=== PATIENT | male | born 1970 | race Caucasian/White ===

== ENCOUNTER 2020-04-27 12:00 | Outpatient (CLI) | payer BC, SELFPAY | END 2020-04-27 12:01 | disposition home or self-care (01) | LOC: SLEEP 04-28 09:52 | PROVIDERS: Family Provider Family Medicine; PCP Family Medicine; Visit Provider Family Medicine | DX: G47.10 Hypersomnia, unspecified (principal) | CPT/HCPCS: G0399 ==

== ENCOUNTER 2020-06-10 20:00 | Outpatient (CLI) | payer BC, SELFPAY | END 2020-06-10 20:01 | disposition home or self-care (01) | LOC: SLEEP 06-11 08:52 | PROVIDERS: Family Provider Family Medicine; PCP Family Medicine; Visit Provider Family Medicine | DX: G47.30 Sleep apnea, unspecified (principal) | CPT/HCPCS: 95811 ==

== ENCOUNTER 2021-02-16 11:29 | Outpatient (CLI) | payer BC, SELFPAY ==
--- NOTE | 2021-02-16 11:41 | XRR_ITS ---
PROCEDURE INFORMATION: Exam: XR Lumbosacral Spine Exam date and time: 02/16/2021 11:56 AM Age: 50 years old Clinical indication: Low back pain TECHNIQUE: Imaging protocol: XR of the lumbosacral spine. Views: 6 or more views. Including flexion and extension views. COMPARISON: MRI Lumbar Spine w/o [id number] 09/19/2014 2:47 PM FINDINGS: Bones/joints: No fracture, dislocation or other acute bony abnormalities are seen. Mild degenerative changes are present with mild disc space narrowing along with degenerative narrowing and sclerosis of the lumbar facet joints. There is no significant malalignment on the flexion and extension views. Soft tissues: Unremarkable. XR/XR lumbar spine 6V w f/e [id number] IMPRESSION: 1. No acute abnormality. No malalignment. 2. Mild chronic degenerative disease.
== END 2021-02-16 11:30 | disposition home or self-care (01) ==
PROVIDERS: PCP Nurse Practitioner Family; Visit Provider Nurse Practitioner Family
DX: S39.92XA Unspecified injury of lower back, initial encounter (principal); M54.5 Low back pain; X58.XXXA Exposure to other specified factors, initial encounter
CPT/HCPCS: 72114

== ENCOUNTER → 2021-03-21 12:27 | Outpatient (BNVA) | payer BC, SELFPAY | PROVIDERS: PCP Nurse Practitioner Family; Visit Provider Nurse Practitioner | DX: R10.9 Unspecified abdominal pain (principal) | CPT/HCPCS: 81000 ==

== ENCOUNTER 2021-12-29 14:36 | Outpatient (CLI) | payer OTHER, SELFPAY ==
--- NOTE | 2021-12-29 15:15 | MR_ITS ---
WS: [id number] MRI LEFT SHOULDER HISTORY: Throwing injury. Pain. COMPARISON: 11/08/2021 TECHNIQUE: Multiplanar sequences of the shoulder joint are submitted. Moderate AC joint osteoarthritis. Joint space narrowing with hypertrophic osteophyte formation and ma rrow edema on both sides of the joint. Osteophyte encroachment upon the supraspinatus muscle at the l evel of the glenoid. Additional osteophyte from the distal undersurface of the acromion with mild enc roachment upon the supraspinatus tendon. No os acromion. Biceps tendon remains in the bicipital groov e. There is increase fluid along the biceps tendon sheath. 5 mm insertion site tear of the distal supraspinatus with fluid signal extending into the tendon. The re is no tendon retraction. There is additional mild tendinopathy involving the supraspinatus tendon. Suspect also a small insertion site tear involving the infraspinatus tendon. No retraction. Subscapu gerson tendon is normal. No muscle atrophy or edema. Glenohumeral joint narrowing. No labral tear is i dentified. Evaluation of the labrum is limited secondary to motion and positioning of the patient. No marrow edema or fracture. There is a small amount of edema along the coracohumeral ligament to the r otator cuff interval. MR/MR shoulder LT wo con* [id number] IMPRESSION: 1. Moderate AC joint arthritis with encroachment upon the supraspinatus tendon and muscle. 2. Additional subacromial impingement upon the supraspinatus tendon over the h umeral head by the distal undersurface acromial osteophyte. 3. Insertion site tear with intrasubstance extension supraspinatus tendon with no retraction. 4. Suspicious for tiny insertion site tear of the infraspinatus tendon. 5. Increase fluid in the biceps tendon sheath consistent with tenosynovitis. 6. Small amount of edema in the rotator cuff interval and coracohumeral ligame nt from mild sprain.
== END 2021-12-29 14:37 | disposition home or self-care (01) ==
LOC: RAD 14:37
PROVIDERS: PCP Nurse Practitioner Family; Visit Provider Orthopaedic Surgery
DX: S46.912A Strain of unspecified muscle, fascia and tendon at shoulder and upper arm level, left arm, initial encounter (principal); X58.XXXA Exposure to other specified factors, initial encounter; M13.812 Other specified arthritis, left shoulder; R60.0 Localized edema
CPT/HCPCS: 73221

== ENCOUNTER 2022-01-14 06:00 | Outpatient (RCR) | payer OTHER, SELFPAY | END 2022-01-27 23:59 | disposition home or self-care (01) | LOC: SPT 06:00 | PROVIDERS: PCP Nurse Practitioner Family; Referring Provider Orthopaedic Surgery; Visit Provider Orthopaedic Surgery | DX: M25.512 Pain in left shoulder (principal) | CPT/HCPCS: 97110; 97161 ==

== ENCOUNTER 2022-01-28 06:00 | Outpatient (RCR) | payer OTHER, SELFPAY | END 2022-02-24 17:15 | disposition home or self-care (01) | LOC: SPT 06:00 | PROVIDERS: PCP Nurse Practitioner Family; Referring Provider Orthopaedic Surgery; Visit Provider Orthopaedic Surgery | DX: M25.512 Pain in left shoulder (principal) | CPT/HCPCS: 97110 ==

== ENCOUNTER 2022-09-27 04:51 | Emergency (ER) | payer BC, SELFPAY ==
[2022-09-27 04:59] VITALS: BP 152/103; PULSE 56; RESP 18; TEMP 36.5; O2SAT 98; BMI 38.0
--- NOTE | 2022-09-27 05:04 | W.ED.ABDPA2 ---
HPI - Abdominal Pain General: Chief Complaint: Abdominal Pain Stated Complaint: abd pain Time Seen by Provider: 09/27/22 04:53 Source: patient Mode of arrival: ambulatory Limitations: no limitations History of Present Illness: 51-year-old male states been having left lower quadrant abdominal pain over the last 2 days. He states been sharp in nature has been having diarrhea over the last 4 days. He states his pain is currently a 5 out of 10 he denies any fevers he states he has had diverticulitis in the past and this feels similar. He denies any fevers Associated Symptoms: Denies chills, dysuria and fever(s) Review of Systems Const: Denies: fever(s), chills, body aches or change in appetite Eyes: Denies: blurry vision or eye discomfort ENMT: Denies: throat pain or dental pain Card: Denies: chest pain Resp: Denies: dyspnea GI: Reports: abdominal pain : Denies: dysuria Musc: Denies: neck pain or back pain Skin/Breast: Denies: rash Neuro: Denies: headache(s) Psych: Denies: depression Rob/Lymph: Denies: easy bruising All/Imm: Denies: urticaria PFSH ED PFSH: Medical History Diverticulitis Social History Smoking and tobacco status: never smoked (but chews tabaco ) Alcohol intake: current Alcohol intake frequency: holidays/special occasions only Physical Exam Const: COMMON NORMALS: no acute distress, patient oriented x3 and healthy appearing HENMT: COMMON NORMALS: normocephalic and atraumatic HEAD & SCALP: normocephalic and atraumatic Eye: COMMON NORMALS: Equal, round and reactive pupils present and EOMs intact bilaterally PUPIL: Yes Equal, round and reactive pupils present Neck/C-Spine: COMMON NORMALS: full ROM and supple Chest: COMMONS NORMALS: normal inspection of the chest and normal palpation of entire chest wall Resp: COMMON NORMALS: normal respiratory effort, No retractions, No use of accessory muscles and clear to auscultation bilaterally AUSCULTATION: clear to auscultation bilaterally Cardio: COMMON NORMALS: regular rate, regular rhythm and No murmurs present (Cardio) RATE: regular rate RHYTHM: regular rhythm GI: COMMON NORMALS: Normal to inspection, nondistended, normoactive bowel sounds present, Soft to palpation and no masses PALPATION: Yes Soft to palpation and Yes Tenderness to palpation present (GI) Details: LLQ Extremity: COMMON NORMALS: normal to inspection and full ROM Neuro: COMMON NORMALS: patient oriented x3, moves all extremities and no focal motor deficits Psych: COMMON NORMALS: mental status grossly normal, Normal thought process present and cooperative THOUGHT PROCESS: Normal thought process present Skin: COMMON NORMALS: no rashes or lesions noted and no wounds GENERAL SKIN EXAM: no rashes or lesions noted Course Vital Signs: Vital signs: Vital Signs Temperature 97.7 F 09/27/22 04:59 Pulse Rate 56 L 09/27/22 05:10 Respiratory Rate 15 09/27/22 05:12 Blood Pressure 131/88 09/27/22 05:10 Pulse Oximetry 98 09/27/22 05:12 Oxygen Delivery Me thod 09/27/22 05:10 MDM - Abdominal Pain Medical Decision Making Patient presents with abdominal pains is likely diverticulitis his white count here is normal he is nontoxic-appearing we will place him on antibiotics along with pain medicine he is to follow-up with PCP and return if worsening. Lab Data 09/27/22 05:04 09/27/22 05:04 Labs/Radiology: Laboratory Results WBC 6.9 10^3/uL (4.0-10.0) 09/27/22 05:04 RBC 5.68 10^6/uL (4.1-5.3) H 09/27/22 05:04 Hgb 17.1 g/dL (11.7-16.6) H 09/27/22 05:04 Hct 50.7 % (42.0-52.0) 09/27/22 05:04 MCV 89.3 fl (80-94) 09/27/22 05:04 MCH 30.1 pg (28.0-34.0) 09/27/22 05:04 MCHC 33.7 g/dL (30.0-36.0) 09/27/22 05:04 RDW 12.4 % (12.1-15.1) 09/27/22 05:04 Plt Count 203 10^3/cmm (130-400) 09/27/22 05:04 MPV 9.5 fL (7.4-10.4) 09/27/22 05:04 Neut % (Auto) 50.4 % 09/27/22 05:04 Lymph % (Auto) 36.1 % 09/27/22 05:04 Weld % (Auto) 11.2 % 09/27/22 05:04 Eos % (Auto) 1.6 % 09/27/22 05:04 Baso % (Auto) 0.4 % 09/27/22 05:04 Neut # (Auto) 3.45 10^3/uL (1.8-7.7) 09/27/22 05:04 Lymph # (Auto) 2.5 10^3/uL (0.8-4.8) 09/27/22 05:04 Weld # (Auto) 0.8 10^3/uL (0.2-0.9) 09/27/22 05:04 Eos # (Auto) 0.1 10^3/uL (0.0-0.8) 09/27/22 05:04 Baso # (Auto) 0.0 10^3/uL (0.0-0.1) 09/27/22 05:04 Nucleated RBC % (auto) 0 % 09/27/22 05:04 Nucleated RBCs # 0.0 /100WBC 09/27/22 05:04 Sodium 136 mmol/L (136-145) 09/27/22 05:04 Potassium 3.9 mmol/L (3.5-5.1) 09/27/22 05:04 Chloride 102 mmol/L (98-107) 09/27/22 05:04 Carbon Dioxide 25 mmol/L (22-29) 09/27/22 05:04 Anion Gap 12.9 (5-19) 09/27/22 05:04 BUN 13 mg/dL (6-20) 09/27/22 05:04 Creatinine 1.0 mg/dL (0.7-1.2) 09/27/22 05:04 GFR Calculation 78.8 mL/min (90-130) L 09/27/22 05:04 Glucose 89 mg/dL (65-115) 09/27/22 05:04 Calculated Osmolality 282 mOsm/kg (285-295) L 09/27/22 05:04 Calcium 9.1 mg/dL (8.5-10.5) 09/27/22 05:04 Total Bilirubin 0.6 mg/dL (0.15-1.2) 09/27/22 05:04 AST 17 U/L (0-40) 09/27/22 05:04 ALT 27 U/L (0-41) 09/27/22 05:04 Alkaline Phosphatase 98 U/L (40-130) 09/27/22 05:04 Total Protein 6.7 g/dL (6.6-8.7) 09/27/22 05:04 Albumin 4.1 g/dL (3.5-5.2) 09/27/22 05:04 Globulin 2.6 g/dL (1.3-4.6) 09/27/22 05:04 Lipase 27 U/L (13-60) 09/27/22 05:04 Discharge Plan Discharge Patient Disposition: Home Clinical Impression: Abdominal pain, Diverticulitis Condition: Stable Prescriptions: New hydrocodone-acetaminophen 5-325 mg tablet 1 tab PO Q6H PRN (Reason: pain) Qty: 14 0RF ondansetron 4 mg tablet,disintegrating 4 mg PO Q6H PRN (Reason: nausea and vomiting) Qty: 14 0RF Augmentin 500-125 mg tablet 1 tab PO BID Qty: 14 0RF No Action metoprolol succinate 100 mg capsule,sprinkle,ER 24hr 100 mg PO DAILY naproxen [Naprosyn] 500 mg tablet 500 mg PO BID Qty: 30 0RF dicyclomine 20 mg tablet 20 mg PO BID PRN (Reason: abdominal discomfort) Qty: 30 0RF tramadol 50 mg tablet 50 mg PO Q6H PRN (Reason: pain) Qty: 20 0RF metronidazole 500 mg tablet 500 mg PO Q8H Qty: 30 0RF citalopram 20 mg tablet 20 mg PO DAILY Discharge Orders: Discharge ED (Routine); Ordered 09/27/22 Ordered By: Katiuska Joshi Referrals: Liu,Tori, [employer] [Primary Care Provider] - Discharge Diet: Advance as tolerated Discharge Activity: Resume usual activity Patient Instructions: Diverticulitis (ED), Abdominal Pain (ED), Opioid Safety Coding Level of Care Code ED Bilingual Sales Assistant for Chg Fwd Exam Comprehensive
[2022-09-27 05:07] LABS: Basophils % 0.4 %; Eosinophils # 0.1 10^3/uL (0.0-0.8); Eosinophils % 1.6 %; Hematocrit 50.7 % (42.0-52.0); Hemoglobin 17.1 g/dL (11.7-16.6); Lymphocytes # 2.5 10^3/uL (0.8-4.8); Lymphocytes % 36.1 %; Mean Corpuscular HGB Conc 33.7 g/dL (30.0-36.0); Mean Corpuscular Hemoglobin 30.1 pg (28.0-34.0); Mean Corpuscular Volume 89.3 fl (80-94); Mean Platelet Volume 9.5 fL (7.4-10.4); Monocytes # 0.8 10^3/uL (0.2-0.9); Monocytes % 11.2 %; Neutrophils # 3.45 10^3/uL (1.8-7.7); Neutrophils % 50.4 %; Nucleated Red Blood Cells % 0 %; Platelet Count 203 10^3/cmm (130-400); Red Blood Count 5.68 10^6/uL (4.1-5.3); Red Cell Distribution Width 12.4 % (12.1-15.1); White Blood Count 6.9 10^3/uL (4.0-10.0)
[2022-09-27 05:10] VITALS: BP 131/88; PULSE 56; RESP 14; O2SAT 98
[2022-09-27] MEDS: sodium chloride 0.9% 1,000 ML 999 ML IV (05:11)
[2022-09-27 05:12] VITALS: RESP 15; O2SAT 98
[2022-09-27] MEDS: ondansetron 2 mg/ML SDV 2 mL 4 MG IVP (05:12)
[2022-09-27] MEDS: morphine 4 mg/mL SDV 1 mL IVP (05:12)
[2022-09-27 05:23] LABS: Alanine Aminotransferase 27 U/L (0-41); Albumin Level 4.1 g/dL (3.5-5.2); Alkaline Phosphatase 98 U/L (40-130); Anion Gap 12.9 (5-19); Aspartate Amino Transferase 17 U/L (0-40); Blood Urea Nitrogen 13 mg/dL (6-20); Calcium 9.1 mg/dL (8.5-10.5); Carbon Dioxide 25 mmol/L (22-29); Chloride 102 mmol/L (98-107); Globulin 2.6 g/dL (1.3-4.6); Glomerular Filtration Rate 78.8 mL/min (90-130); Glucose 89 mg/dL (65-115); Lipase 27 U/L (13-60); Osmolality Calculated 282 mOsm/kg (285-295); Potassium 3.9 mmol/L (3.5-5.1); Sodium 136 mmol/L (136-145); Total Bilirubin 0.6 mg/dL (0.15-1.2); Total Protein 6.7 g/dL (6.6-8.7)
[2022-09-27 06:02] VITALS: BP 112/73; PULSE 56; RESP 14; O2SAT 98
== END 2022-09-27 06:12 | disposition home or self-care (01) ==
PROVIDERS: Emergency Provider Emergency Medicine; PCP Nurse Practitioner Family
DX: K57.92 Diverticulitis of intestine, part unspecified, without perforation or abscess without bleeding (principal)
CPT/HCPCS: 80053; 83690; 85025; 96361; 96374; 96375; 99284; J2270; J2405; J7030

== ENCOUNTER 2023-06-29 08:14 | Day surgery (SDC) | payer BC, SELFPAY ==
[2023-06-29 08:25] VITALS: BP 156/90; PULSE 59; RESP 18; TEMP 36.1; O2SAT 94; BMI 39.3
[2023-06-29] MEDS: sodium chloride 0.9% 1,000 ML 30 ML IV (08:30)
--- NOTE | 2023-06-29 08:43 | ANES.PREANE2 ---
Pre-Anesthetic Assessment Height/Weight: Height 1.83 m Weight 131.542 kg Temp Pulse Resp BP Pulse Ox O2 Del Method 97.0 F L 59 L 18 156/90 94 Room Air 06/29/23 08:25 06/29/23 08:25 06/29/23 08:25 06/29/23 08:25 06/29/23 08:25 06/29/23 08:25 Operation Date: 06/29/23 09:30 Proposed Procedures p Colonoscopy 16243,Z12.11(Not Applicable) - Noe Ramos MD Familial anesthetic complications: None Was Beta Armand taken within 24 hours: N/A Last intake: Intake Last Liquid Date 06/28/23 Last Liquid Time 22:00 Last Solid Date 06/27/23 Last Solid Time 16:30 Social Tobacco (chews) and No alcohol Exam alert, oriented x 3, clear to auscultation bilaterally and regular rate & rhythm Airway Mallampati: Class IV Dentition: other (missing tooth) CV/HEM Hypertension Metabolic Morbid Obesity Anesthetic Plan ASA status: 2 Anesthesia: MAC Risk of > 500 ml blood loss (7ml/kg in children): No Medications/Allergies Home Medications Medication Instructions Recorded Confirmed Last Taken Type metoprolol succinate 100 mg 100 mg PO DAILY 12/08/19 06/27/23 06/29/23 07:30 History capsule sprinkle, ext. release 24 hr citalopram 20 mg tablet 20 mg PO DAILY 08/05/22 06/27/23 06/28/23 History cholecalciferol (vitamin D3) 325 325 mcg PO DAILY 06/01/23 06/27/23 06/28/23 History mcg (13,000 unit) capsule turmeric 400 mg capsule 2,000 mg PO DAILY 06/01/23 06/27/23 06/28/23 History Allergies Allergy/AdvReac Type Severity Reaction Status Date / Time No Known Allergies Allergy Verified 06/29/23 08:23 Current Medications Generic Name Dose Route Start Last Admin Trade Name Freq PRN Reason Stop Dose Admin Sodium Chloride 1,000 mls @ 30 mls/hr 06/29/23 08:30 06/29/23 08:30 Sodium Chloride 0.9% IV 30 mls/hr .Q24H ESTHER Administration PFSH Anesthesia Medical History Diverticulitis Social History Smoking and tobacco status: never smoked (but chews tabaco ) Alcohol intake: current Alcohol intake frequency: holidays/special occasions only Substance/Drug Use: never Data Anesthesia Cardiac Studies: No Data to Display
--- NOTE | 2023-06-29 09:03 | P.HPUD_ITS ---
Surgery/Procedure H&P Update DATE OF PROCEDURE: June 29, 2023 DATE H&P PERFORMED: 06/01/23 H&P UPDATE INFORMATION: I have reviewed H&P completed within last 30 days, I have examined patient prior to procedure, No changes to prior documentation and H&P is in [facility] EMR on date indicated PLANNED PROCEDURE: Operation Date: 06/29/23 09:30 Proposed Procedures p Colonoscopy 66195,Z12.11(Not Applicable) - Noe Ramos MD
--- NOTE | 2023-06-29 09:50 | ANE.PACU2 ---
Inpatient post-anesthesia follow up: Airway intact: Yes Vital signs: Temperature 97.9 F Pulse Rate 65 Respiratory Rate 20 Blood Pressure 135/102 Pulse Oximetry 97 Oxygen Delivery Me thod Room Air Oxygen Flow Rate 5 Fraction of Inspir ed Oxygen Hydration adequate: Yes Nausea and vomiting: No Pain level: 1 Mental status: Baseline
[2023-06-29 09:54] VITALS: BP 124/76; PULSE 58; RESP 20; TEMP 36.6; O2SAT 96
[2023-06-29 10:00] VITALS: BP 137/87; PULSE 63; RESP 20; O2SAT 96
[2023-06-29 10:10] VITALS: BP 135/102; PULSE 65; RESP 20; O2SAT 97
[2023-06-29 10:28] VITALS: BP 154/103; PULSE 51; RESP 20; O2SAT 97
--- NOTE | 2023-06-29 10:58 | PC.NURSE ---
Instructed patient to monitor HR/BP/neurostatis closely over next 24 hours. Instructed to contact healthcare personel if HR IN 30's, BP diastolic over 110, or any change to alertness/orientation.
== END 2023-06-29 10:41 | disposition home or self-care (01) ==
PROVIDERS: PCP Nurse Practitioner Family; Visit Provider Surgery
PROC: 0DJD8ZZ Inspection of Lower Intestinal Tract, Via Natural or Artificial Opening Endoscopic (ICD-10-PCS; CPT 45378; principal; 2023-06-29 09:30)
DX: Z12.11 Encounter for screening for malignant neoplasm of colon (principal); I10 Essential (primary) hypertension; E66.01 Morbid (severe) obesity due to excess calories; Z68.39 Body mass index [BMI] 39.0-39.9, adult; F17.290 Nicotine dependence, other tobacco product, uncomplicated
CPT/HCPCS: 45378; J2704; J7030